=== PATIENT | female | born 1980 | race Caucasian/White ===

== ENCOUNTER 2018-05-15 12:33 | Emergency (ER) | payer MEDICAID ==
[~2018-05-15] VITALS: Ht 157.5 cm; Wt 40.0 kg
[~2018-05-15 12:33] MED LIST: CLIN300C85 PO; HYDR-4383 PO
[2018-05-15] MEDS ORDERED: acetaminophen 325mg tablet PO ONE (14:10)
[2018-05-15] MEDS ORDERED: normal saline 1000ML IV soln IV ONE (14:10)
[2018-05-15 14:18] LABS: BASOPHILS % (AUTO) 0.4 % (0-1); EOSINOPHILS # (AUTO) 0.5 X10'3 (0-0.9); EOSINOPHILS % (AUTO) 4.6 % (0-6); HEMATOCRIT 39.6 % (35.0-45.0); HEMOGLOBIN 12.8 g/dl (12.0-16.0); LYMPHOCYTES % (AUTO) 18.8 % (21-51); MEAN CORPUSCULAR HEMOGLOBIN 29.1 PG (27.0-31.0); MEAN CORPUSCULAR HGB CONC 32.4 % (33.0-36.5); MEAN PLATELET VOLUME 6.7 FL (7.4-10.4); MONOCYTES # (AUTO) 0.9 X10'3 (0-0.9); NEUTROPHILS # (AUTO) 7.3 X10'3 (1.8-7.7); NEUTROPHILS % (AUTO) 68.2 % (42-75); PLATELET COUNT 415 X10'3 (140-440); RED CELL DISTRIBUTION WIDTH 14.7 % (11.5-14.5); WHITE BLOOD COUNT 10.7 X10'3 (4.5-11.0)
[2018-05-15 14:29] LABS: ALANINE AMINOTRANSFERASE 16 U/L (12-78); ALBUMIN 3.8 G/DL (3.4-5.0); ALKALINE PHOSPHATASE 78 IU/L (46-116); ANION GAP 9 (8-16); ASPARTATE AMINO TRANSFERASE 16 U/L (10-37); BILIRUBIN,TOTAL 0.2 MG/DL (0.1-1.0); BLOOD UREA NITROGEN 9 MG/DL (7-18); BUN/CREATININE RATIO 9.9 (6.6-38.0); CALCIUM 8.5 MG/DL (8.5-10.1); CHLORIDE 104 MMOL/L (99-107); CREATININE 0.91 MG/DL (0.40-0.90); GLUCOSE 91 MG/DL (70-104); POTASSIUM 3.9 MMOL/L (3.5-5.1); SODIUM 142 MMOL/L (135-145); TOTAL CARBON DIOXIDE 29.3 MMOL/L (24-32); TOTAL PROTEIN 7.6 G/DL (6.4-8.2); eGFR 69 ML/MIN
[2018-05-15] MEDS ORDERED: benzonatate 100mg capsule PO ONE (14:40)
[2018-05-15] MEDS ORDERED: BENZ-16 PO (15:37)
[2018-05-15] MEDS ORDERED: AZIT500T PO (15:37)
[2018-05-15 16:09] VITALS: BP 97/55
== END 2018-05-15 16:10 | disposition home or self-care (01) ==
LOC: ER 12:34
DX: J06.9 Acute upper respiratory infection, unspecified (principal); F17.210 Nicotine dependence, cigarettes, uncomplicated; Z98.890 Other specified postprocedural states; Z88.0 Allergy status to penicillin; Z88.1 Allergy status to other antibiotic agents; Z79.2 Long term (current) use of antibiotics; Z79.899 Other long term (current) drug therapy
CPT/HCPCS: 36415; 71046; 80053; 84145; 85025; 87502; 87503; 93005; 99284; J7030

== ENCOUNTER 2018-07-17 08:39 | Emergency (ER) | payer MEDICAID ==
[~2018-07-17] VITALS: Ht 157.5 cm; Wt 44.8 kg
[2018-07-17 08:44] VITALS: BP 123/94
[2018-07-17] MEDS ORDERED: bupivacaine 0.25%/epinephrine 1:200,000 inj (contains preserv. MDV) IJ ONE (09:15)
[2018-07-17] MEDS ORDERED: CLIN150C2 PO (09:18)
--- NOTE | 2018-07-17 09:50 | NUR ---
Patient departed from er dc without paperwork. Telephone call to patient and she will be returning for prescription.
== END 2018-07-17 10:01 | disposition home or self-care (01) ==
LOC: ER 08:40
DX: K04.7 Periapical abscess without sinus (principal); K02.9 Dental caries, unspecified; Z88.1 Allergy status to other antibiotic agents; Z88.0 Allergy status to penicillin
CPT/HCPCS: 64400; 99284